=== PATIENT | female | born 1995 | race African-American/Black ===

== ENCOUNTER 2022-09-13 14:18 | Inpatient (IN) | payer OTHER ==
[2022-09-13 14:45] VITALS: BMI 25.9
[2022-09-13] MEDS ORDERED: POLYETHYLENE GLYCOL (HEALTHYLAX) 3350 17 GM PACKET PO PRN (15:12)
[2022-09-13] MEDS ORDERED: NALOXONE HCL (KLOXXADO) 8 MG SPRAY NS PRN (15:12)
[2022-09-13] MEDS ORDERED: MAGNESIUM HYDROX 2400MG/30ML ORAL SUSPENSION 30 ML CUP PO PRN (15:12)
[2022-09-13] MEDS ORDERED: BISMUTH SUBSALICYLATE 262 MG/15 ML BTL PO PRN (15:12)
[2022-09-13] MEDS ORDERED: BENZOCAINE/MENTHOL (CHLORASEPTIC ) LOZENGE MM PRN (15:12)
[2022-09-13] MEDS ORDERED: ACETAMINOPHEN 325 MG TABLET (FP) PO PRN (15:12)
[2022-09-13] MEDS ORDERED: LOPERAMIDE HCL 2 MG CAPSULE PO PRN (15:12)
[2022-09-13] MEDS ORDERED: NICOTINE 21 MG/24 HOURS TOPICAL PATCH TD PRN (15:12)
[2022-09-13] MEDS ORDERED: guaiFENesin 600 MG TABLET.ER (FP) PO PRN (15:12)
[2022-09-13] MEDS ORDERED: IBUPROFEN 400 MG TABLET (FP) PO PRN (15:12)
[2022-09-13] MEDS ORDERED: MAG HYDROX/AL HYDROX/SIMETH 30 ML UNIT-DOSE CUP PO PRN (15:12)
[2022-09-13] MEDS ORDERED: BENZONATATE 200 MG CAPSULE PO PRN (15:12)
[2022-09-13] MEDS ORDERED: NICOTINE POLACRILEX 4 MG GUM BUC PRN (15:12)
[2022-09-13] MEDS ORDERED: NICOTINE 10 MG CARTRIDGE (INHALER) IH PRN (15:12)
[2022-09-13] MEDS ORDERED: NALOXONE HCL 0.4 MG/ML VIAL IM PRN (15:12)
[2022-09-13] MEDS ORDERED: methaDONE HCL 10 MG TABLET (FOR DETOX USE ONLY) PO ONE (16:30)
[2022-09-13] MEDS ORDERED: methaDONE HCL 10 MG TABLET (FOR DETOX USE ONLY) ONE (16:47)
[2022-09-13] MEDS ORDERED: MELATONIN 5 MG TABLETS PO SCH (22:00)
[2022-09-13] MEDS: THIAMINE HCL 100 MG TABLET (FP) PO SCH (23:23)
[2022-09-14] MEDS: METHOCARBAMOL 500 MG TABLET PO PRN ×2 (00:04→10:23)
[2022-09-14] MEDS: hydrOXYzine PAMOATE 25 MG CAPSULE (FP) PO PRN ×3 (00:04→17:13)
[2022-09-14] MEDS: PRENATAL VITAMINS W/ FOLIC ACID TABLET (FP) PO SCH (10:23)
[2022-09-14] MEDS: IBUPROFEN 600 MG TABLET (FP) PO PRN (10:24)
[2022-09-14 11:39] LABS: HEMATOCRIT 38.5 % (32.4-45.2); HEMOGLOBIN 12.7 GM/dL (10.7-15.3); MCH 24.4 pg (25.7-33.7); MCHC 33.1 g/dl (32.0-36.0); MEAN CELL VOLUME 73.7 fl (80-96); MEAN PLT VOLUME 9.3 fl (7.5-11.1); PLATELET COUNT 414 10^3/uL (134-434); RBC 5.22 M/mm3 (3.60-5.2); RDW 18.4 % (11.6-15.6); WHITE BLOOD COUNT 10.6 K/mm3 (4.0-10.0)
[2022-09-14 12:03] LABS: CALCIUM 10.1 mg/dL (8.5-10.1)
[2022-09-14 12:04] LABS: ALBUMIN 4.3 g/dl (3.4-5.0); BLOOD UREA NITROGEN 24.3 mg/dL (7-18)
[2022-09-14 12:07] LABS: CREATININE 0.8 mg/dL (0.55-1.3)
[2022-09-14 12:08] LABS: BILIRUBIN,TOTAL 1.1 mg/dL (0.2-1); TOT PROT 8.7 g/dl (6.4-8.2)
[2022-09-14] MEDS: cloNIDine HCL 0.1 MG TABLET PO PRN (13:19)
[2022-09-14] MEDS ORDERED: risperiDONE 0.5 MG TABLET PO SCH (22:00)
[2022-09-14] MEDS: THIAMINE HCL 100 MG TABLET (FP) PO SCH (23:25)
[2022-09-14] MEDS: MELATONIN 5 MG TABLETS PO SCH (23:25)
[2022-09-14] MEDS: diazePAM 5 MG TABLET PO PRN (23:39)
[2022-09-15] MEDS: METHOCARBAMOL 500 MG TABLET PO PRN ×2 (05:21→17:33)
[2022-09-15] MEDS: diazePAM 5 MG TABLET PO PRN ×4 (05:21→22:29)
[2022-09-15] MEDS ORDERED: risperiDONE 0.5 MG TABLET PO SCH (10:00)
[2022-09-15] MEDS ORDERED: methaDONE HCL 10 MG TABLET (FOR DETOX USE ONLY) PO ONE (10:00)
[2022-09-15] MEDS ORDERED: risperiDONE 1 MG TABLET PO SCH (10:10)
[2022-09-15] MEDS: PRENATAL VITAMINS W/ FOLIC ACID TABLET (FP) PO SCH (10:16)
[2022-09-15] MEDS ORDERED: risperiDONE 1 MG TABLET PO ONE (10:35)
[2022-09-15] MEDS: hydrOXYzine PAMOATE 25 MG CAPSULE (FP) PO PRN (17:33)
[2022-09-15] MEDS: cloNIDine HCL 0.1 MG TABLET PO PRN (20:41)
[2022-09-15] MEDS: MELATONIN 5 MG TABLETS PO SCH (22:29)
[2022-09-15] MEDS: risperiDONE 1 MG TABLET PO SCH (22:29)
[2022-09-15] MEDS: THIAMINE HCL 100 MG TABLET (FP) PO SCH (22:29)
[2022-09-16] MEDS: hydrOXYzine PAMOATE 25 MG CAPSULE (FP) PO PRN ×3 (06:26→22:07)
[2022-09-16] MEDS: diazePAM 5 MG TABLET PO PRN ×4 (08:44→22:05)
[2022-09-16] MEDS: METHOCARBAMOL 500 MG TABLET PO PRN ×2 (09:16→16:30)
[2022-09-16] MEDS: risperiDONE 1 MG TABLET PO SCH ×2 (09:16→22:04)
[2022-09-16] MEDS: PRENATAL VITAMINS W/ FOLIC ACID TABLET (FP) PO SCH (09:16)
[2022-09-16] MEDS: IBUPROFEN 600 MG TABLET (FP) PO PRN (10:36)
[2022-09-16] MEDS: ALBUTEROL SO4 HFA INHALER IH PRN (17:30)
[2022-09-16] MEDS: THIAMINE HCL 100 MG TABLET (FP) PO SCH (22:04)
[2022-09-16] MEDS: MELATONIN 5 MG TABLETS PO SCH (22:04)
[2022-09-16] MEDS: ONDANSETRON *ODT* 4 MG TABLET SL PRN (22:06)
[2022-09-17] MEDS: hydrOXYzine PAMOATE 25 MG CAPSULE (FP) PO PRN ×3 (06:05→22:07)
[2022-09-17] MEDS: DICYCLOMINE HCL 10 MG CAPSULE PO PRN (07:06)
[2022-09-17] MEDS: ONDANSETRON *ODT* 4 MG TABLET SL PRN (07:32)
[2022-09-17] MEDS ORDERED: methaDONE HCL 10 MG TABLET (FOR DETOX USE ONLY) PO ONE (10:00)
[2022-09-17] MEDS: PRENATAL VITAMINS W/ FOLIC ACID TABLET (FP) PO SCH (10:07)
[2022-09-17] MEDS: risperiDONE 1 MG TABLET PO SCH ×2 (10:07→22:06)
[2022-09-17] MEDS: METHOCARBAMOL 500 MG TABLET PO PRN ×2 (11:07→17:28)
[2022-09-17] MEDS: IBUPROFEN 600 MG TABLET (FP) PO PRN (11:07)
[2022-09-17] MEDS: diazePAM 5 MG TABLET PO PRN (11:08)
[2022-09-17 16:44] VITALS: RESP 18
[2022-09-17] MEDS: MELATONIN 5 MG TABLETS PO SCH (22:06)
[2022-09-17] MEDS: THIAMINE HCL 100 MG TABLET (FP) PO SCH (22:06)
[2022-09-18] MEDS: hydrOXYzine PAMOATE 25 MG CAPSULE (FP) PO PRN ×2 (05:40→10:44)
[2022-09-18] MEDS: ONDANSETRON *ODT* 4 MG TABLET SL PRN (06:26)
[2022-09-18] MEDS: METHOCARBAMOL 500 MG TABLET PO PRN (06:26)
[2022-09-18] MEDS: IBUPROFEN 600 MG TABLET (FP) PO PRN (08:33)
[2022-09-18] MEDS: ALBUTEROL SO4 HFA INHALER IH PRN (08:33)
[2022-09-18] MEDS: PRENATAL VITAMINS W/ FOLIC ACID TABLET (FP) PO SCH (09:02)
[2022-09-18] MEDS: risperiDONE 1 MG TABLET PO SCH (09:02)
[2022-09-18 09:40] VITALS: BP 148/90; PULSE 112; TEMP 97.8
[2022-09-18] MEDS: DICYCLOMINE HCL 10 MG CAPSULE PO PRN (11:43)
== END 2022-09-18 12:03 | disposition home or self-care (01) | DRG 773 ==
LOC: YASAS 14:18 → Y6N 17:08
PROVIDERS: ADMIT Allergy & Immunology; ATTEND Psychiatry & Neurology Pain Medicine
PROC: HZ2ZZZZ Detoxification Services for Substance Abuse Treatment (ICD-10-PCS; principal; 2022-09-13)
DX: F11.23 Opioid dependence with withdrawal (principal); F14.20 Cocaine dependence, uncomplicated; F17.210 Nicotine dependence, cigarettes, uncomplicated; F19.280 Other psychoactive substance dependence with psychoactive substance-induced anxiety disorder; F19.282 Other psychoactive substance dependence with psychoactive substance-induced sleep disorder; F20.9 Schizophrenia, unspecified; F31.9 Bipolar disorder, unspecified; F41.8 Other specified anxiety disorders; J45.20 Mild intermittent asthma, uncomplicated
CPT/HCPCS: 36415; 80053; 82140; 84520; 85027; 86780; 87811; C9803-CS; Q0162; U0003; U0005